=== PATIENT | male | born 1950 | race Caucasian/White ===

== ENCOUNTER 2022-05-12 15:18 | Emergency (ER) | payer MEDICARE, BC, MEDICAID, SELFPAY ==
[2022-05-12 16:07] VITALS: BP 120/76; PULSE 88; O2SAT 94; BMI 27.1
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
[2022-05-12 16:48] LABS: Partial Thromboplastin Time 35.6 SEC (26.0-36.4)
[2022-05-12 16:54] LABS: COVID-19 Test Negative (Negative)
[2022-05-12 16:58] LABS: Alanine Aminotransferase 11 U/L (0-40); Albumin Level 4.7 g/dL (3.5-5.0); Alkaline Phosphatase 104 U/L (39-117); Anion Gap 10 (12-20); Aspartate Amino Transferase 15 U/L (5-37); Bilirubin Direct 0.2 mg/dL (0.0-0.5); Bilirubin Total 0.6 mg/dL (0.0-1.0); Blood Urea Nitrogen 15 mg/dL (9-16); Carbon Dioxide 29 mmol/L (22-29); Chloride 102 mmol/L (96-108); Creatinine Clr Calc Pharmacy 64.5; Estimated Glomerular Filt Rate > 60; Glucose Random 122 mg/dL (60-115); Magnesium 1.9 mg/dL (1.6-2.6); Potassium 4.3 mmol/L (3.3-5.1); Sodium 137 mmol/L (135-145); Total Protein 7.6 g/dL (6.5-8.0)
[2022-05-12 17:18] LABS: Basophils Percent Auto 0.3 % (0-2); Eosinophils Percent Auto 0.4 % (0-4); Hematocrit 43.7 % (42.0-52.0); Hemoglobin 14.3 g/dl (14.0-18.0); Imm Gran Abs Auto 0.03 X10*3/uL (0.00-0.03); Imm Gran Pct Auto 0.3 % (0.0-0.4); Lymphocytes Absolute Auto 1.1 X10*3/uL (1.2-4.9); Lymphocytes Percent Auto 10.1 % (20-40); Mean Corpuscular HGB Conc 32.7 g/dl (31.0-36.0); Mean Corpuscular Volume 94.8 fL (80.0-98.0); Mean Platelet Volume 8.9 fL (9.4-12.4); Monocytes Absolute Auto 0.5 X10*3/uL (0.1-1.2); Neutrophils Absolute Auto 9.1 x10*3/uL (2.0-8.3); Neutrophils Percent Auto 83.9 % (45-73); Platelet Count 337 X10*3/uL (160-400); Red Blood Count 4.61 X10*6/uL (4.60-5.80); Red Cell Distribution Width 12.2 % (11.0-16.0); White Blood Count 10.9 X10*3/uL (4.8-10.8)
--- NOTE | 2022-05-12 17:40 | PC.NURSE ---
Ingrid called at [phone] for a bls transfer back to [facility] per Nuha PERRY. EMS booked between [id number]. SHANNON aware
[2022-05-12 18:00] VITALS: BP 125/68; PULSE 67; RESP 16; TEMP 36.9; O2SAT 95
--- NOTE | 2022-05-12 18:55 | PC.NURSE ---
At 18:30 pt tried to give urine using urinal with trading assistant not able to give urine. This civil laboratory technician was unaware that pt was wearing a brief. Brief was wet and soil. This civil laboratory technician cleaned pt and put a pad on the bed. Pt currently is not wearing a brief.
== END 2022-05-12 19:16 | disposition skilled nursing facility (03) ==
PROVIDERS: Physician Assistant; Emergency Provider Emergency Medicine; PCP Internal Medicine
DX: R11.2 Nausea with vomiting, unspecified (principal); Z20.822 Contact with and (suspected) exposure to COVID-19
CPT/HCPCS: 80048; 80076; 83735; 85025; 85610; 85730; 87635; 99283